=== PATIENT | male | born 1980 | race Caucasian/White ===

== ENCOUNTER 2023-06-15 12:43 | Emergency (ER) | payer OTHER, SELFPAY ==
[2023-06-15 13:18] VITALS: BP 129/72; PULSE 68; RESP 20; TEMP 36.4; O2SAT 100
--- NOTE | 2023-06-15 13:42 | ED.NAVMDI ---
HPI - Nausea/Vomiting/Diarrhea General Chief complaint: Nausea/Vomiting/Diarrhea Stated complaint: diarrhea,stomach cramping, tired Time Seen by Provider: 06/15/23 13:43 Source: patient and RN notes reviewed Mode of arrival: ambulatory Limitations: no limitations History of Present Illness HPI Narrative: 42-year-old male presented for complaint of diarrhea and abdominal cramping for 1 week. Endorses decreased appetite, occasional dry heaves, and subjective fever yesterday. Reports 3 liquid stools today. Has been taking Pepto-Bismol. Endorses some black stools, denies hematochezia, urinary complaints, flank pain or chest pain. Denies recent travel, antibiotic use, or change in diet. Denies sick contacts. Related Data Home Medications Medication Instructions Recorded Confirmed No Home Medications 06/15/23 06/15/23 Allergies Allergy/AdvReac Type Severity Reaction Status Date / Time No Known Allergies Allergy Verified 06/15/23 13:55 Review of Systems Review of Systems: CONSTITUTIONAL: Denies body aches, fever, chills ENT: Denies rhinorrhea, congestion CARDIOVASCULAR: Denies chest pain, palpitations, or edema. RESPIRATORY: Denies cough or dyspnea. GASTROINTESTINAL: Endorses abdominal cramps, nausea, diarrhea. Denies vomiting, hematochezia, melena, hematemesis GENITOURINARY: Denies dysuria, hematuria, or CVA tenderness. SKIN: Denies rash, itching, or wounds. MUSCULOSKELETAL: Denies back pain, joint pain, or myalgia. NEUROLOGIC: Denies headache, numbness, tingling, or weakness. All systems reviewed & are unremarkable except as noted in HPI and below PMFSH Past Medical History Medical History (Updated 06/15/23 @ 14:33 by Linda Dietz APRN) No pertinent past medical history Surgical History Surgical History (Updated 06/15/23 @ 13:59 by Linda Dietz APRN) H/O left inguinal hernia repair Comments At time of signature, I have reviewed and agree with nursing past medical, surgical, social and family history unless otherwise noted. Please see nursing chart for further information. There is no relevant family history pertinent to the presenting complaint Exam Narrative: GENERAL: mildly ill-appearing, and in no acute distress. EYES: EOMI. Conjunctivae normal. ENT: Mucous membranes pink and moist. CHEST: No respiratory distress. Clear to auscultation. HEART: Regular rate and rhythm. No murmur appreciated. Normal peripheral pulses. ABDOMEN: abd soft, nondistended, normal active bowel sounds. Nontender abdomen; No guarding, rebound tenderness, asymmetry or rigidity. Left inguinal scar. EXTREMITIES: Normal range of motion. No edema. SKIN: Warm, dry, no rash. Capillary refill normal. Normal skin turgor. NEURO: No focal deficits. Alert and oriented x3. PSYCH: Normal affect. Course Course Emergency Course: Patient is aware of diagnosis, understands and agrees to treatment plan. Anticipatory guidance given. Patient agrees to follow-up as directed and is aware of reasons to seek care at the emergency department. Portions of this record may have been created with voice recognition software Level of Care: Express Care Visit Vital Signs Vital signs: Vital Signs Temperature 97.5 F L 06/15/23 13:18 Pulse Rate 68 06/15/23 13:18 Respiratory Rate 20 06/15/23 13:18 Blood Pressure 129/72 06/15/23 13:18 Pulse Oximetry 100 06/15/23 13:18 Oxygen Delivery Room Air 06/15/23 13:18 Temperature 97.5 F L 06/15/23 13:18 Pulse Rate 68 06/15/23 13:18 Respiratory Rate 20 06/15/23 13:18 Blood Pressure 129/72 06/15/23 13:18 Pulse Oximetry 100 06/15/23 13:18 Oxygen Delivery Room Air 06/15/23 13:18 MDM - Nausea/Vomiting/Diarrhea MDM Narrative Medical decision making narrative: Patient presented for complaint of diarrhea and abdominal cramping for 1 week with associated nausea, dry heaves and subjective fever. Nontender abdomen on exam. Advised ER transfer
== END 2023-06-15 13:58 | disposition left against medical advice (07) ==
PROVIDERS: Emergency Provider Nurse Practitioner Family
DX: R19.7 Diarrhea, unspecified (principal)
CPT/HCPCS: 99211; G0463